=== PATIENT | male | born 1970 | race Caucasian/White ===

== ENCOUNTER 2021-01-06 16:25 | Emergency (ER) | payer OTHER, MEDICAID, SELFPAY ==
--- NOTE | ~2021-01-06 | XR_ITS ---
EXAMINATION: LUMBAR SPINE AND RIGHT HIP CLINICAL INFORMATION: Back pain radiating down to the right posterior hip COMPARISON: None TECHNIQUE: 3 views lumbosacral spine, single view pelvis with 2 additional views right hip FINDINGS: Lumbar spine: Degenerative changes are present in the lumbar spine most marked at L4-L5 with disc space narrowing sclerosis and osteophyte formation. Milder changes are present at L5-S1. No fractures or bony destructive lesions are seen. Right hip: No bone joint or soft tissue abnormality is seen. XR/XR hip RT min 2V IMPRESSION: Degenerative changes in the spine most marked at L4-L5 with normal-appearing right hip
--- NOTE | ~2021-01-06 | XR_ITS ---
EXAMINATION: LUMBAR SPINE AND RIGHT HIP CLINICAL INFORMATION: Back pain radiating down to the right posterior hip COMPARISON: None TECHNIQUE: 3 views lumbosacral spine, single view pelvis with 2 additional views right hip FINDINGS: Lumbar spine: Degenerative changes are present in the lumbar spine most marked at L4-L5 with disc space narrowing sclerosis and osteophyte formation. Milder changes are present at L5-S1. No fractures or bony destructive lesions are seen. Right hip: No bone joint or soft tissue abnormality is seen. XR/XR lumbar spine 2-3V IMPRESSION: Degenerative changes in the spine most marked at L4-L5 with normal-appearing right hip
[2021-01-06 17:57] VITALS: BP 118/80; PULSE 75; RESP 16; TEMP 36.6; O2SAT 97; BMI 26.6
[2021-01-06] MEDS: Ketorolac Tromethamine 30 MG/ML VIAL IM (18:50)
--- NOTE | 2021-01-06 19:18 | ED_ITS ---
HPI - General Adult General Chief complaint: Back Pain/Injury Stated complaint: Sharp pain from hip down to legs Source: patient Mode of arrival: ambulatory Limitations: no limitations History of Present Illness HPI narrative: Patient presents to right sided back pain radiating down leg. Patient denies any fever, chills, abdominal pain, nausea, vomiting, dysuria, hematuria, flank pain, or any recent trauma. Related Data Previous Rx's Medication Instructions Recorded cyclobenzaprine 10 mg PO TID PRN #18 tab 01/06/21 naproxen 500 mg PO BID PRN #20 tab 01/06/21 Allergies Allergy/AdvReac Type Severity Reaction Status Date / Time No Known Allergies Allergy Unverified 04/15/20 17:36 [No Known Allergies*] Review of Systems Review of Systems: Yes all other systems are reviewed and are negative Constitutional: Constitutional: Reports as per HPI and Reports no additional constitutional complaints Eyes: Eyes: Reports as per HPI and Reports no additional eye complaints ENT: Reports system reviewed and no additional complaints, except as documented and Reports as per HPI Cardiovascular: Cardiovascular: Reports as per HPI and Reports no additional cardiovascular complaints Respiratory: Respiratory: Reports as per HPI and Reports no additional respiratory complaints Gastrointestinal: Gastrointestinal: Reports as per HPI and Reports no additional gastrointestinal complaints Genitourinary: Genitourinary: Reports no additional male genitourinary complaints and Reports as per HPI Musculoskeletal: Musculoskeletal: Reports no additional musculoskeletal complaints, Reports as per HPI and Reports back pain Neurologic: Reports system reviewed and no additional complaints, except as documented and Reports as per HPI Psychiatric: Psychiatric: Reports no additional psychiatric complaints and Reports as per HPI [facility] Past Medical History Surgical History (Updated 01/06/21 @ 18:00 by Jeanie Ayala) H/O hernia repair Previous back surgery Social History Social History Advance Directives: No Advance Directives Information Provided: Yes Physical Exam Vital Signs: Vital Signs: Last Vital Signs Temp 97.9 F 01/06/21 17:57 Pulse 75 01/06/21 17:57 Resp 16 01/06/21 17:57 BP 118/80 01/06/21 17:57 Pulse Ox 97 01/06/21 17:57 Body Mass Index 26.6 Const: General: cooperative, healthy appearing, comfortable, no acute distress, well developed, alert, awake and Physically active Orientation/consciousness: patient oriented x3 HENMT: Head: Yes normal to inspection, Yes No palpable skull fracture present, Yes normocephalic, Yes atraumatic, No abrasion, No Acrocyanosis present, No Valente's sign, No contusion, No cranial bruits, No hematoma, No laceration, No occipital foramen tenderness, No palpable skull fracture, No raccoon eyes, No scalp tenderness, No Temporal artery tenderness present and No periorbital ecchymosis Eyes: General: appearance normal, both eyes and all related structures Neck: Neck: Yes normal visual inspection, Yes full ROM, Yes no lymphadenopathy, Yes no meningeal signs, Yes trachea midline, Yes supple and No tender Chest: Chest palpation & inspection: normal inspection of the chest and normal palpation of entire chest wall Resp: Effort & Inspection: normal respiratory effort and able to speak in complete sentences Cardio: Jugular venous distension: no JVD Heart sounds: S1 normal heart sound present and S2 normal heart sound present GI: Inspection: Yes normal to inspection and No abdominal wall ecchymosis Palpation (GI): Soft to palpation, not firm, nontender, no guarding and not rigid : General: No CVA tenderness and Yes no CVA tenderness Back/Spine/Pelvis: Back: no CVA tenderness, No CVA tenderness and back tenderness (Positive for lumbar spine tenderness on palpation) Skin: General skin exam: no rashes or lesions noted and elasticity normal Neuro: General: patient oriented x3, gait normal, no meningeal signs and CN's II-XI intact bilaterally Cranial nerves: Yes CN's II-XII intact bilaterally Extrem: General: Yes normal to inspection and Yes full ROM Psych: Appearance: grossly normal and well kempt Course Course Course Narrative: Patient will have back and hip x-ray. Patient given Toradol. Reevaluation(s) Reevaluation #1: X-rays negative for fracture. X-ray shows arthritis. Medical Decision Making MDM Narrative Medical decision making narrative: Lumbar spine arthritis Discharge Plan Discharge Clinical Impression: Lumbar radiculopathy, Sciatica Patient Disposition: Home, Self-Care Instructions: Sciatica (ED), Lumbar Radiculopathy (ED) Additional Instructions: Return to the ED for any urinary/bowel incontinence, abdominal pain, flank pain, fever, chills, dysuria, hematuria, paralysis of lower extremities, or any other concerning symptoms. Prescriptions: New naproxen 500 mg tablet 500 mg PO BID PRN (Reason: pain) Qty: 20 RF: 0 cyclobenzaprine 10 mg tablet 10 mg PO TID PRN (Reason: pain) Qty: 18 RF: 0 Stand Alone Forms: Work/School Release Interventions: ED Discharge Assessment Last Done: 01/06/21 19:42 Discharge Date/Time: 01/06/21 19:42 Print Language: Irish
--- NOTE | 2021-01-06 19:41 | PC.NURSE ---
PT AMBULATORY, FOUND SOME PAIN RELIEF FOLLOWING TORADOL INJECTION. PT PROVIDED WITH LIST OF PCP.
== END 2021-01-06 19:42 | disposition home or self-care (01) ==
PROVIDERS: Emergency Provider Emergency Medicine
DX: M54.16 Radiculopathy, lumbar region (principal); M54.30 Sciatica, unspecified side
CPT/HCPCS: 72100; 73502; 96372; 99283; 99284; J1885

== ENCOUNTER 2021-09-18 18:08 | Emergency (ER) | payer OTHER, MEDICAID, SELFPAY ==
--- NOTE | 2021-09-18 | ECG_ITS ---
Test Reason : INTERMITTENT CP Blood Pressure : / mmHG Vent. Rate : 064 BPM Atrial Rate : 064 BPM P-R Int : 152 ms QRS Dur : 100 ms QT Int : 376 ms P-R-T Axes : 044 008 028 degrees QTc Int : 387 ms Normal sinus rhythm Incomplete right bundle branch block Borderline ECG No previous ECGs available Referred By: Generic ED Physician Electronically Signed By:AVA MORTON
--- NOTE | ~2021-09-18 | XR_ITS ---
EXAMINATION: XR CHEST CLINICAL INFORMATION: Cough COMPARISON: Prior chest x-ray July 2019 TECHNIQUE: Frontal view of the chest was obtained. FINDINGS: No significant abnormality is noted involving the heart, lungs, mediastinum, bony thorax or soft tissues. XR/XR chest 1V IMPRESSION: Unremarkable examination.
--- NOTE | 2021-09-18 18:34 | PC.NURSE ---
no answer to triage at 1834
[2021-09-18 19:18] VITALS: BP 139/89; PULSE 75; RESP 16; TEMP 37; O2SAT 98; BMI 26.6
--- NOTE | 2021-09-18 20:38 | ED_ITS ---
HPI - General Adult General Chief complaint: General Medical Stated complaint: Booster shot- chest pain, pass out? Time Seen by Provider: 09/18/21 20:38 Source: patient Mode of arrival: ambulatory Limitations: no limitations History of Present Illness HPI narrative: Patient received booster COVID vaccine 3 weeks ago since then complaining of body aches tiredness cough not feeling right multiple complaints believe in COVID vaccine as a cause no shortness of breath has dry cough Related Data Previous Rx's Medication Instructions Recorded cyclobenzaprine 10 mg tablet 10 mg PO TID PRN #18 tab 01/06/21 naproxen 500 mg tablet 500 mg PO BID PRN #20 tab 01/06/21 azithromycin 500 mg tablet 500 mg PO DAILY 2 Days #2 tab 09/18/21 (Zithromax) benzonatate 200 mg capsule 200 mg PO TID PRN #20 cap 09/18/21 Allergies Allergy/AdvReac Type Severity Reaction Status Date / Time No Known Allergies Allergy Unverified 04/15/20 17:36 [No Known Allergies*] Review of Systems Review of Systems: Yes all other systems are reviewed and are negative [facility] Past Medical History Surgical History H/O hernia repair Previous back surgery Social History Social History Advance Directives: No Physical Exam ED Vital Signs: Vital Signs - 24 hr 09/18/21 19:18 09/18/21 21:37 Temperature 98.6 F Pulse Rate 75 82 Respiratory Rate 16 16 Blood Pressure 139/89 145/86 H Pulse Oximetry 98 97 BMI result Body Mass Index 26.6 Appearance: Alert. Oriented X3. No acute distress. ENT: Pharynx normal. Oral Mucosa moist Neck: Normal inspection. Neck supple. CVS: Normal heart rate and rhythm. Pulses normal. Respiratory: No respiratory distress. Equal air entry bilateral, no wheezi ng/rales/rhonchi Abdomen: Soft and nontender. Skin: Skin warm and dry. Normal skin color. Normal skin turgor. Extremities: No lower extremity edema. No calf tenderness Neuro: Oriented X 3. Medical Decision Making MDM Narrative Medical decision making narrative: Patient chest x-ray negative for infiltrate labs are stable likely bronchitis discharge patient home on Zithromax and Tessalon Lab Data Lab results reviewed: Yes I reviewed the patient's lab results. Result diagrams: 09/18/21 21:02 09/18/21 21:02 Labs: Lab Results 09/18/21 09/18/21 09/18/21 Range/Units 21:02 21:02 21:02 WBC 7.7 (4.8-10.8) X10*3/uL RBC 5.11 (4.60-5.80) X10*6/uL Hgb 14.6 (14.0-18.0) g/dl Hct 43.2 (42.0-52.0) % MCV 84.5 (80.0-98.0) fL MCH 28.6 (27.0-33.0) pg MCHC 33.8 (31.0-36.0) g/dl RDW 12.9 (11.0-16.0) % Plt Count 302 (160-400) X10*3/uL MPV 9.7 (9.4-12.4) fL Immature Gran % (Auto) 0.3 (0.0-0.4) % Neut % (Auto) 67.1 (45-73) % Lymph % (Auto) 22.2 (20-40) % Wheeler % (Auto) 6.2 (2-11) % Eos % (Auto) 3.5 (0-4) % Baso % (Auto) 0.7 (0-2) % Lymph # (Auto) 1.7 (1.2-4.9) X10*3/uL Wheeler # (Auto) 0.5 (0.1-1.2) X10*3/uL Eos # (Auto) 0.3 (0.0-0.4) X10*3/uL Baso # (Auto) 0.1 (0.0-0.2) X10*3/uL Abs Immat Gran (auto) 0.02 (0.00-0.03) X10*3/uL Absolute Neuts (auto) 5.2 (2.0-8.3) x10*3/uL Absolute Nucleated RBC 0.000 (0.0-0.012) X10*3/uL Nucleated RBC % (auto) 0.0 (0.0-0.2) /100WBC Sodium 140 (135-145) mmol/L Potassium 4.1 (3.3-5.1) mmol/L Chloride 105 (96-108) mmol/L Carbon Dioxide 27 (22-29) mmol/L Anion Gap 12 (12-20) BUN 12 (9-16) mg/dL Creatinine 0.85 (0.5-1.4) mg/dL Estim Creat Clear Calc 93.9 Estimated GFR > 60 Random Glucose 96 (60-115) mg/dL Calcium 9.8 (8.4-10.2) mg/dL Total Bilirubin 0.5 (0.0-1.0) mg/dL AST 29 (5-37) U/L ALT 61 H (0-40) U/L Alkaline Phosphatase 84 (39-117) U/L Total Protein 7.1 (6.5-8.0) g/dL Albumin 4.5 (3.5-5.0) g/dL COVID-19 ([facility]) Negative (Negative) COVID-19 Clin Com See Note Discharge Plan Discharge Clinical Impression: Acute bronchitis Patient Disposition: Home, Self-Care Instructions: Acute Bronchitis (ED) Additional Instructions: Take antibiotic as prescribed Drink plenty of fluids Cough drops as advised Follow with PCP if not better Prescriptions: New benzonatate 200 mg capsule 200 mg PO TID PRN (Reason: cough) Qty: 20 0RF azithromycin [Zithromax] 500 mg tablet 500 mg PO DAILY 2 Days Qty: 2 0RF Rx Instructions: start on day 2 of therapy No Action naproxen 500 mg tablet 500 mg PO BID PRN (Reason: pain) Qty: 20 0RF cyclobenzaprine 10 mg tablet 10 mg PO TID PRN (Reason: pain) Qty: 18 0RF Rx Instructions: side effect is drowsiness. Do not take at work or while driving.
[2021-09-18 21:10] LABS: MANUAL DIFF FLAG NO
[2021-09-18 21:36] LABS: Alanine Aminotransferase 61 U/L (0-40); Albumin Level 4.5 g/dL (3.5-5.0); Alkaline Phosphatase 84 U/L (39-117); Anion Gap 12 (12-20); Aspartate Amino Transferase 29 U/L (5-37); Bilirubin Total 0.5 mg/dL (0.0-1.0); Blood Urea Nitrogen 12 mg/dL (9-16); Calcium 9.8 mg/dL (8.4-10.2); Carbon Dioxide 27 mmol/L (22-29); Chloride 105 mmol/L (96-108); Creatinine Clr Calc Pharmacy 93.9; Estimated Glomerular Filt Rate > 60; Glucose Random 96 mg/dL (60-115); Potassium 4.1 mmol/L (3.3-5.1); Sodium 140 mmol/L (135-145); Total Protein 7.1 g/dL (6.5-8.0)
[2021-09-18 21:37] VITALS: BP 145/86; PULSE 82; RESP 16; O2SAT 97
[2021-09-18 21:37] LABS: COVID-19 Test Negative (Negative)
[2021-09-18 21:43] LABS: Basophils Absolute Auto 0.1 X10*3/uL (0.0-0.2); Basophils Percent Auto 0.7 % (0-2); Eosinophils Absolute Auto 0.3 X10*3/uL (0.0-0.4); Eosinophils Percent Auto 3.5 % (0-4); Hematocrit 43.2 % (42.0-52.0); Hemoglobin 14.6 g/dl (14.0-18.0); Imm Gran Abs Auto 0.02 X10*3/uL (0.00-0.03); Imm Gran Pct Auto 0.3 % (0.0-0.4); Lymphocytes Absolute Auto 1.7 X10*3/uL (1.2-4.9); Lymphocytes Percent Auto 22.2 % (20-40); Mean Corpuscular HGB Conc 33.8 g/dl (31.0-36.0); Mean Corpuscular Hemoglobin 28.6 pg (27.0-33.0); Mean Corpuscular Volume 84.5 fL (80.0-98.0); Mean Platelet Volume 9.7 fL (9.4-12.4); Monocytes Absolute Auto 0.5 X10*3/uL (0.1-1.2); Monocytes Percent Auto 6.2 % (2-11); Neutrophils Absolute Auto 5.2 x10*3/uL (2.0-8.3); Neutrophils Percent Auto 67.1 % (45-73); Platelet Count 302 X10*3/uL (160-400); Red Blood Count 5.11 X10*6/uL (4.60-5.80); Red Cell Distribution Width 12.9 % (11.0-16.0); White Blood Count 7.7 X10*3/uL (4.8-10.8)
[2021-09-18] MEDS: Azithromycin 500 MG TABLET PO (22:39)
== END 2021-09-18 22:45 | disposition home or self-care (01) ==
PROVIDERS: Emergency Provider Internal Medicine
DX: J20.9 Acute bronchitis, unspecified (principal); R07.89 Other chest pain; M79.10 Myalgia, unspecified site; Z20.822 Contact with and (suspected) exposure to COVID-19; Z79.899 Other long term (current) drug therapy
CPT/HCPCS: 36415; 71045; 80053; 85025; 87635; 93005; 99284

== ENCOUNTER 2022-01-27 18:04 | Emergency (ER) | payer OTHER, SELFPAY ==
[2022-01-27 18:07] VITALS: BP 153/78; PULSE 93; RESP 18; TEMP 37.1; O2SAT 100; BMI 26.6
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
[2022-01-27] MEDS: Ibuprofen 600 MG TABLET PO (21:15)
[2022-01-27] MEDS: Ondansetron ODT 4 MG TAB.RAPDIS TRANSLINGU (21:15)
[2022-01-27 21:51] VITALS: BP 118/71; PULSE 68; RESP 18; TEMP 36.9; O2SAT 99
== END 2022-01-27 22:01 | disposition home or self-care (01) ==
PROVIDERS: Emergency Provider Emergency Medicine
DX: M54.50 Low back pain, unspecified (principal); M54.2 Cervicalgia; Z79.899 Other long term (current) drug therapy
CPT/HCPCS: 99283

== ENCOUNTER 2023-06-30 16:35 | Emergency (ER) | payer OTHER, SELFPAY ==
[2023-06-30 16:38] VITALS: BP 96/60; PULSE 100; RESP 18; TEMP 36.9; O2SAT 97; BMI 26.3
--- NOTE | 2023-06-30 16:39 | ED_ITS ---
HPI - URI/Sore Throat General Chief Complaint: Upper Respiratory Symptoms Stated Complaint: cough, chest feels heavy Time Seen by Provider: 06/30/23 17:00 Source: patient Mode of arrival: ambulatory Limitations: no limitations History of Present Illness HPI Narrative: 53 yo male healthy here with complaints of cough, chest tightness, body aches, sore throat, congestion x 2 days. Kids at home have RSV. No fevers, chills, neck pain/stiffness, headache, vomiting, diarrhea, chest pain. Related Data Previous Rx's Medication Instructions Recorded cyclobenzaprine 10 mg tablet 10 mg PO TID PRN pain #18 tabs 01/06/21 naproxen 500 mg tablet 500 mg PO BID PRN pain #20 tabs 01/06/21 azithromycin 500 mg tablet 500 mg PO DAILY 2 days #2 tabs 09/18/21 (Zithromax) benzonatate 200 mg capsule 200 mg PO TID PRN cough #20 caps 09/18/21 benzonatate 200 mg capsule 200 mg PO TID PRN cough #20 caps 06/30/23 nirmatrelvir 300 mg (150 mg See Rx Instructions PO .COMPLEX 06/30/23 x2)-ritonavir 100 mg tablet,dose #30 ea pack (Paxlovid) Allergies Allergy/AdvReac Type Severity Reaction Status Date / Time No Known Allergies Allergy Unverified 04/15/20 17:36 [No Known Allergies*] Review of Systems Review of Systems: Yes all other systems are reviewed and are negative Constitutional: Constitutional: Reports no additional constitutional complaints, Reports body ache(s), Denies chills, Denies fever(s), Denies headache(s) and Denies weakness Eyes: Eyes: Reports no additional eye complaints and Denies change in vision ENT: Reports system reviewed and no additional complaints, except as documented, Denies dizziness, Denies headache(s), Denies nasal congestion, Denies nasal discharge, Denies neck pain and Reports sore throat Cardiovascular: Cardiovascular: Reports no additional cardiovascular complaints, Denies chest pain, Denies leg edema and Denies dyspnea Respiratory: Respiratory: Reports no additional respiratory complaints, Reports cough and Denies dyspnea Gastrointestinal: Gastrointestinal: Reports no additional gastrointestinal complaints, Denies abdominal pain, Denies diarrhea, Denies nausea and Denies vomiting Genitourinary: Genitourinary: Denies urinary incontinence Musculoskeletal: Musculoskeletal: Reports no additional musculoskeletal complaints, Denies back pain, Denies arthralgias, Denies joint swelling, Denies neck pain, Denies numbness and Denies tingling Integumentary/Breasts: Skin/Breast: Reports system reviewed and no additional complaints, except as docu and Denies rash Neurologic: Reports system reviewed and no additional complaints, except as documented, Denies Abnormal speech present, Denies dizziness, Denies headache(s), Denies numbness, Denies tingling and Denies weakness [facility] Past Medical History Attestation statement: The following information was validated with the patient. Source: old records reviewed and nursing notes reviewed Surgical History H/O hernia repair Previous back surgery Social History Social History Advance Directives: No Advance Directives Information Provided: Yes Physical Exam Vital Signs: Vital Signs: Last Vital Signs Temp 98.5 F 06/30/23 16:38 Pulse 100 06/30/23 16:38 Resp 18 06/30/23 16:38 BP 96/60 06/30/23 16:38 Pulse Ox 97 06/30/23 16:38 O2 Del Method Room Air 06/30/23 16:38 BMI result Body Mass Index 26.3 Const: General: cooperative, healthy appearing, comfortable and no acute distress Orientation/consciousness: patient oriented x3 Limitations: no limitations HEENT: Head: Yes normal to inspection Ears: hearing grossly normal bilaterally and TM's normal bilaterally General nose exam: Normal external nose present Face and sinus: Yes normal facial exam Mouth: Normal oral and palatal mucosa present Throat: Yes posterior oropharynx normal, Yes tonsils normal and Yes uvula midline Eyes: General: appearance normal, both eyes and all related structures Pupils: Equal, round and reactive pupils present Neck: Neck: Yes normal visual inspection, Yes full ROM, Yes no lymphadenopathy and Yes no meningeal signs Chest: Chest palpation & inspection: normal inspection of the chest Resp: Effort & Inspection: normal respiratory effort Auscultation: clear to auscultation bilaterally Cardio: Rate: regular rate Rhythm: regular rhythm Peripheral pulses: Peripheral pulses 2+ throughout GI: Inspection: Yes normal to inspection Palpation (GI): Soft to palpation and nontender Auscultation: normal bowel sounds Back/Spine/Pelvis: Thoracic/Lumbar Spine: thoracic and lumbar spine normal to inspection Skin: General skin exam: no rashes or lesions noted Neuro: General: patient oriented x3, no meningeal signs, no focal motor deficits and normal sensation to monofilament Cranial nerves: Yes Equal, round and reactive pupils present Cognition (Neuro): normal cognition Speech: No Abnormal speech present Gait exam (Neuro): Normal gait present Motor exam (neuro): 5/5 motor strength present throughout Extrem: General: Yes normal to inspection Course Course Course Narrative: This is an RME: Additional HPI, ROS, PE not included below will be deferred to primary provider. Patient is a 53-year-old male who presents emergency department for evaluation of comments, cough, chest pain described as a heaviness felt during episodes of coughing, shortness of breath intermittently. Onset of symptoms was yesterday. Denies any pertinent past medical history. Reports that his children were ill last week with RSV. Exam: LSCTA, no hypoxia or tachypnea, mildly tachycardic Plan: Viral testing Reevaluation(s) Reevaluation #1: COVID screen is positive. Testing for flu and RSV are negative. No hypoxia or tachypnea. Patient would like Paxlovid. Aware of potential side effects. Recommend continue supportive care at home. Reviewed worrisome signs and symptoms of when to return to the emergency room. Comfortable plan for discharge home. Medical Decision Making Medical Decision Making [facility] Narrative: 53 yo male healthy here with complaints of cough, chest tightness, body aches, sore throat, congestion x 2 days. Kids at home have RSV. No fevers, chills, neck pain/stiffness, headache, vomiting, diarrhea, chest pain. Exam is benign . Likely viral syndrome Will send testing for flu/covid/rsv Differential Diagnosis Differential Diagnoses: The differential diagnosis associated with the presentation includes viral syndrome Admission/Observation Consideration of admission/observation: Escalation of care including admission/observation considered no hypoxia or tachypnea to suggest need for supplemental oxygen and or admission for further management Lab Data MDM Lab Attestation statement: I reviewed the patient's lab results. Labs: Lab Results 06/30/23 Range/Units 16:58 Influenza Type A (PCR) NEGATIVE (Negative) Influenza Type B (PCR) NEGATIVE (Negative) RSV RNA Qual (PCR) NEGATIVE (Negative) SARS-CoV-2 RNA (RT-PCR) POSITIVE A (Negative) Tests considered The following testing was considered but not selected: no hypoxia or tachypnea to suggest need for x-ray Prescription Management I considered prescription management with: Antiviral and Antibiotic Discharge Plan Discharge Clinical Impression: COVID-19 Patient Disposition: Home, Self-Care Instructions: COVID-19 (Coronavirus Disease 2019) (ED) Additional Instructions: quarantine for 5 days then mask at for an additional 5 days Alternate Motrin or Tylenol for pain or fever Increase fluids, rest Return for any worsening symptoms. Prescriptions: New Paxlovid 300 mg (150 mg x 2)-100 mg tablets,dose pack See Rx Instructions .ROUTE .COMPLEX Qty: 30 0RF Rx Instructions: take TWO 150 mg tablets of nirmatrelvir with ONE 100 mg tablet of ritonavir twice daily for 5 days benzonatate 200 mg capsule 200 mg PO TID PRN (Reason: cough) Qty: 20 0RF No Action naproxen 500 mg tablet 500 mg PO BID PRN (Reason: pain) Qty: 20 0RF cyclobenzaprine 10 mg tablet 10 mg PO TID PRN (Reason: pain) Qty: 18 0RF Rx Instructions: side effect is drowsiness. Do not take at work or while driving. benzonatate 200 mg capsule 200 mg PO TID PRN (Reason: cough) Qty: 20 0RF azithromycin [Zithromax] 500 mg tablet 500 mg PO DAILY 2 Days Qty: 2 0RF Rx Instructions: start on day 2 of therapy Referrals: Physician,Unknown J [Primary Care Provider] - 1 week
[2023-06-30 17:42] LABS: Influenza A PCR NEGATIVE (Negative); Influenza B PCR NEGATIVE (Negative); Resp Syncy Virus RNA Qual PCR NEGATIVE (Negative); SARS COV2 PCR INHOUSE POSITIVE (Negative)
== END 2023-06-30 17:58 | disposition home or self-care (01) ==
PROVIDERS: Nurse Practitioner Family; Emergency Provider Student in an Organized Health Care Education/Training Program
DX: U07.1 COVID-19 (principal)
CPT/HCPCS: 0241U; 99282; 99283

== ENCOUNTER 2024-08-28 13:55 | Emergency (ER) | payer OTHER, SELFPAY ==
--- NOTE | ~2024-08-28 | XR_ITS ---
EXAMINATION: XR CHEST CLINICAL INFORMATION: cough COMPARISON: Chest 09/18/2021. TECHNIQUE: 2 views of the chest were obtained. FINDINGS: No significant abnormality is noted involving the heart, lungs, mediastinum, bony thorax or soft tissues. XR/XR chest 2V IMPRESSION: Unremarkable chest examination. Electronically signed by: Rey Mtz MD 08/28/2024 03:20 PM [facility]
[2024-08-28 14:08] VITALS: BP 130/73; PULSE 96; RESP 16; TEMP 36.3; O2SAT 97; BMI 25.8
--- NOTE | 2024-08-28 14:08 | ED.GENADULT ---
HPI - General Adult General Chief complaint: Upper Respiratory Symptoms Stated complaint: RSV symptoms Time Seen by Provider: 08/28/24 16:03 Source: patient, RN notes reviewed and old records reviewed Mode of arrival: ambulatory Limitations: no limitations History of Present Illness ED Provider: Irvin DOTSON narrative: 54-year-old male presents for evaluation of cough. Patient reports he has been told him for the last 4 days pain He reports that his daughter is home and tested positive for RSV. The patient denies any significant shortness of breath but has facial pressure, headaches He denies any fevers or chills Related Data Previous Rx's ?Medication ?Instructions ?Recorded cyclobenzaprine 10 mg tablet 10 mg PO TID PRN pain #18 tabs 01/06/21 naproxen 500 mg tablet 500 mg PO BID PRN pain #20 tabs 01/06/21 azithromycin 500 mg tablet 500 mg PO DAILY 2 days #2 tabs 09/18/21 (Zithromax) benzonatate 200 mg capsule 200 mg PO TID PRN cough #20 caps 09/18/21 benzonatate 200 mg capsule 200 mg PO TID PRN cough #20 caps 06/30/23 nirmatrelvir 300 mg (150 mg See Rx Instructions PO .COMPLEX 06/30/23 x2)-ritonavir 100 mg tablet,dose #30 ea pack (Paxlovid) benzonatate 200 mg capsule 200 mg PO TID PRN cough #20 caps 08/28/24 Allergies Allergy/AdvReac Type Severity Reaction Status Date / Time No Known Allergies Allergy Verified 08/28/24 14:12 [No Known Allergies*] Review of Systems Constitutional: Constitutional: Denies body ache(s), Denies chills, Denies fever(s) and Reports headache(s) ENT: Reports headache(s) Cardiovascular: Cardiovascular: Denies chest pain Respiratory: Respiratory: Reports cough Neurologic: Reports headache(s) [facility] Past Medical History Surgical History H/O hernia repair Previous back surgery Social History Social History Advance Directives: No Advance Directives Information Provided: No Do you have a plan to hurt others: No Plan Physical Exam ED Vital Signs: Vital Signs - 24 hr 08/28/24 14:08 Temperature 97.3 F Pulse Rate 96 Respiratory Rate 16 Blood Pressure 130/73 Pulse Oximetry 97 Oxygen Delivery Method Room Air BMI result Body Mass Index 25.8 Const General: healthy appearing, comfortable, no acute distress, alert and awake Nutritional Appearance: well nourished Orientation/consciousness: patient oriented x3 HENMT Head: Yes normocephalic and Yes atraumatic Eyes Eyelids: Yes eyelids normal Conjunctivae: conjunctivae normal Sclerae: sclerae normal Corneas: corneas normal Pupils: Equal, round and reactive pupils present EOM: EOMs intact bilaterally Neck Neck: Yes full ROM Resp Effort & Inspection: normal respiratory effort, able to speak in complete sentences, no audible wheezes and not labored Auscultation: clear to auscultation bilaterally Skin General skin exam: elasticity normal Neuro General: patient oriented x3 Cranial nerves: Yes Equal, round and reactive pupils present and Yes Bilaterally intact EOM present Cognition (Neuro): normal cognition Extrem Other: Moving all extremities well without any obvious deformities Course Course Course Narrative: RME, this is a rapid medical exam performed by Carlo Bryan please refer to primary provider for complete H&P- 54-year-old male presents for evaluation of cough. He reports that his daughter tested positive for RSV. He reports his symptoms started 4 days ago plan for chest x-ray and viral swabs. Medical Decision Making Medical Decision Making [facility] Narrative: 54-year-old male presents for evaluation of a cough. His vital signs are stable, he is well-appearing, exam is reassuring, lungs are clear to auscultation. His chest x-ray is clear, he did test positive for influenza A. He is outside the window for Tamiflu treatment in his symptoms started 4 days ago. Plan for symptomatic care only we will discharge the patient with benzonatate Differential Diagnosis Differential Diagnoses: The differential diagnosis associated with the presentation includes Upper respiratory infection Bronchitis Pneumonia Influenza RSV Lab Data Labs: Lab Results 08/28/24 Range/Units 14:35 Influenza Type A (PCR) POSITIVE A (Negative) Influenza Type B (PCR) NEGATIVE (Negative) RSV RNA Qual (PCR) NEGATIVE (Negative) SARS-CoV-2 RNA (RT-PCR) NEGATIVE (Negative) Radiology Impression Discussion of test interpretation with radiology: I have reviewed the radiologist's reading. Radiologist Impression: FINDINGS: No significant abnormality is noted involving the heart, lungs, mediastinum, bony thorax or soft tissues. XR/XR chest 2V IMPRESSION: Unremarkable chest examination. Electronically signed by: Rey Mtz MD 08/28/2024 03:20 PM [facility] Discharge Plan Discharge Clinical Impression: Influenza Patient Disposition: Home, Self-Care Instructions: Influenza (ED) Additional Instructions: You tested positive for influenza. Use ibuprofen/Tylenol for fevers and body aches. You may use Tessalon Perles as needed for cough Prescriptions: New benzonatate 200 mg capsule 200 mg PO TID PRN (Reason: cough) Qty: 20 0RF No Action naproxen 500 mg tablet 500 mg PO BID PRN (Reason: pain) Qty: 20 0RF cyclobenzaprine 10 mg tablet 10 mg PO TID PRN (Reason: pain) Qty: 18 0RF Rx Instructions: side effect is drowsiness. Do not take at work or while driving. benzonatate 200 mg capsule 200 mg PO TID PRN (Reason: cough) Qty: 20 0RF azithromycin [Zithromax] 500 mg tablet 500 mg PO DAILY 2 Days Qty: 2 0RF Rx Instructions: start on day 2 of therapy Paxlovid 300 mg (150 mg x 2)-100 mg tablets,dose pack See Rx Instructions .ROUTE .COMPLEX Qty: 30 0RF Rx Instructions: take TWO 150 mg tablets of nirmatrelvir with ONE 100 mg tablet of ritonavir twice daily for 5 days benzonatate 200 mg capsule 200 mg PO TID PRN (Reason: cough) Qty: 20 0RF Print Language: Syrian
[2024-08-28 15:35] LABS: Influenza A PCR POSITIVE (Negative); Influenza B PCR NEGATIVE (Negative); Resp Syncy Virus RNA Qual PCR NEGATIVE (Negative); SARS COV2 PCR INHOUSE NEGATIVE (Negative)
[2024-08-28 16:16] VITALS: BP 130/73; PULSE 96; RESP 16; TEMP 36.3; O2SAT 97
--- OUTSIDE RECORDS SUMMARY | 2024-08-28 19:32 | XMS_ITS | Continuity of Care Document ---
Author Organization [facility] Address [address] [place] [address] [address] [place] [phone] Phone Care Team Providers Care Senior Clinical Research Scientist Name Role Phone Huyen DOBSON, Berny Unavailable Unavailable Allergies, Adverse Reactions, Alerts Substance Reaction Status Criticality No Known Allergies Active No Inform ation Medications Medication Instructions Dosage Effective Dates (start - stop) Status Comments No Drug Therapy Prescribed Procedures Procedure Date Office/Outpt E&M Established 10 Mins Feb Office/Outpt E&M Established 15 Mins Jan Duplex Scan-extrem Veins; Comp Office/Oupt E&M New Pt 30 Mins Advance Directives Directive Yes / No Effective Date File Name No Information Encounters Encounter Description Practice Location Reason(s) For Visit Diagnoses Date Provider Providers Copied on Encounter [facility], [address] [facility] [address] [place], [id number], [place] tel:[phone] [facility] [place] No Information 3 Huyen Arrieta. [address] [facility] [address] [place], [address], [place]. tel:[phone] Referring Provider: Marli Tadeo MD, [address] [place] [address], [address]. tel:[phone] Office/Outpt E&M Established 10 Mins [facility], [address] [facility] [address] [place], [id number], [place] tel:[phone] [facility] Chronic venous htn w oth comp of bilateral low extrm Aug-0 3-202 3 Sami uLi. [address] [place] [address], [place], [address], [place]. tel:[phone] Referring Provider: Marli Tadeo MD, [address] [place], [address]. tel:[phone] Office/Outpt E&M Established 15 Mins [facility], [address] [place] [address] [address] [place], [id number], [place] tel:[phone] [facility] Chronic venous htn w oth comp of bilateral low extrm Jan-0 - 3 Arnie Ordonez. [address] [place] [address], [place], [place], [id number], [place]. tel:[phone] Referring Provider: Keshia Kelly Md, [address] [place] [address], [address]. tel:[phone] [facility], [address] [place] [address] [address] [place], [id number], [place] tel:[phone] [facility] Varicose veins of bilateral lower extremities with pain Dec-2 2- 3 Sami Lui. [address] [place] [address], [place], [address], [place]. tel:[phone] Referring Provider: Marli Tadeo MD, [address] [place], [address]. tel:[phone] Office/Oupt E&M New Pt 30 Mins [facility], [address] [place] [address] [address] [place], [id number], [place] tel:[phone] [facility] Chronic venous hypertension w/o comp of bilateral low extrm Augustus-2 0- 3 Sami Lui. [address] [place] [address], [place], [address], . tel:[phone] Referring Provider: Marli Tadeo MD, [address] [place], [address]. tel:[phone] Family History Family Member Type Diagnosis Age At Onset No Information Payers Payer name Insurance type Covered constitution party ID Authoriza tion(s) No Information Social History Type Description Quantity Date Captured Comments Sex Male Smoking Status No Information Chief Complaint And Reason For Visit No Information Reason For Referral Reason For Referral No Information Plan Of Treatment Date Type Action Status Goal Tobacco cessation counseling completed Goal Diet education completed Goal Diet education completed Goal Tobacco cessation counseling completed Referral Ordered: Marli Tadeo MD timeframe: 3 Months (related to Essential (primary) hypertension) ordered Referral Ordered: Weight management: Referral to physician timeframe: 3 Months (related to Body mass index (BMI) 27.0-27.9, adult) ordered History Of Present Illness Encounter Date Complaint History Of Prese nt Illness No Information Functional Status Date Functional Assessmen t No Information Medications Administered Medication Instructions Dosage Effective Dates (start - stop) Status Comments No Drug Therapy Prescribed Instructions Date Instruction Additional Infor mation Patient education booklet given Related to Chrn Vns Hyprtnsn w/Compl (Pain Edema Swelling); BILAT Diet education Related to Essen tial (primary) hypertension Exercise education Related to Es sential (primary) hypertension Lifestyle education Related to E ssential (primary) hypertension Diet education Related to Body mass index (BMI) 27.0-27.9, adult Giving Encouragement to exercise Related to Body mass index (BMI) 27.0-27.9, adult Lifestyle education Related to B tarsha mass index (BMI) 27.0-27.9, adult Patient education booklet given Related to Chronic venous hypertension w/o comp of bilateral low extrm Compression stocking usage as conservative measure Related to Chronic venous hypertension w/o comp of bilateral low extrm Assessments Type Assessment Date No Information Patient Care Teams Name Effective Dates (start - stop) Status Members No Information
== END 2024-08-28 16:16 | disposition home or self-care (01) ==
PROVIDERS: Physician Assistant; Emergency Provider Emergency Medicine
DX: J10.1 Influenza due to other identified influenza virus with other respiratory manifestations (principal); R05.9 Cough, unspecified; Z03.818 Encounter for observation for suspected exposure to other biological agents ruled out
CPT/HCPCS: 0241U; 71046; 99282; 99283

== ENCOUNTER → 2024-08-28 14:09 | Outpatient (BNV) | payer OTHER, SELFPAY | PROVIDERS: Visit Provider Radiology Diagnostic Radiology | DX: R05.9 Cough, unspecified (principal) | CPT/HCPCS: 71046 ==